=== PATIENT | male | born 1955 | race Caucasian/White ===

== ENCOUNTER 2018-12-23 20:43 | Emergency (ER) | payer MEDICARE, BC ==
[~2018-12-23] VITALS: Ht 182.9 cm; Wt 120.2 kg
[2018-12-23 22:27] VITALS: BP 130/78
== END 2018-12-23 22:28 | disposition home or self-care (01) ==
LOC: M.ERS 20:43
DX: L76.22 Postprocedural hemorrhage of skin and subcutaneous tissue following other procedure (principal); Z86.14 Personal history of Methicillin resistant Staphylococcus aureus infection; Z98.890 Other specified postprocedural states; Z90.49 Acquired absence of other specified parts of digestive tract

== ENCOUNTER 2019-01-07 21:17 | Emergency (ER) | payer MEDICARE, BC ==
[~2019-01-07] VITALS: Ht 182.9 cm; Wt 117.9 kg
[2019-01-07 21:55] LABS: ABSOLUTE BASOPHILS 0.1 thou/uL (0.0-0.2); ABSOLUTE LYMPHOCYTES 1.3 thou/uL (0.8-5.3); ABSOLUTE MONOCYTES 1.3 thou/uL (0.0-1.2); ABSOLUTE NEUTROPHILS 8.1 thou/uL (1.6-8.1); BASOPHILS 0.9 %; EOSINOPHILS 0.1 %; HEMATOCRIT 36.2 % (42.0-52.0); LYMPHOCYTES 11.7 %; MCH 27.6 pg (26.0-34.0); MCV 83.5 fL (80.0-100.0); MONOCYTES 12.4 %; MPV 7.8 fl. (7.2-11.1); NUCLEATED RBCS 0 /100WBC; PLATELET COUNT* 399 thou/uL (150-400); POLYS 74.9 %; RBC 4.34 mil/uL (4.50-6.00); RDW-CV 15.1 % (10.5-14.5); WBC 10.8 thou/uL (4.0-11.0)
[2019-01-07 22:03] LABS: CALCIUM 8.6 mg/dL (8.5-10.1); CREATININE 1.5 mg/dL (0.6-1.3); POTASSIUM 3.5 mmol/L (3.5-5.1)
[2019-01-07 22:08] LABS: ALBUMIN 3.6 g/dL (3.4-5.0); TOTAL BILIRUBIN 1.5 mg/dL (<0.1-1.0); TOTAL PROTEIN 8.1 g/dL (6.4-8.2)
[2019-01-08 01:35] VITALS: BP 180/80
[2019-01-08] MEDS ORDERED: MS CONTIN 30 MG30 MG PO (21:24)
[2019-01-08] MEDS ORDERED: LIORESAL 10 MG10 MG PO (21:24)
[2019-01-08] MEDS ORDERED: SORINE 80 MG TA80 M1 PO (21:25)
[2019-01-08] MEDS ORDERED: PRADAXA75 MG PO (21:25)
== END 2019-01-08 01:35 | disposition home or self-care (01) ==
LOC: M.ERS 21:17
PROVIDERS: Emergency Medicine
DX: S51.812A Laceration without foreign body of left forearm, initial encounter (principal); S61.411A Laceration without foreign body of right hand, initial encounter; S80.211A Abrasion, right knee, initial encounter; Z90.49 Acquired absence of other specified parts of digestive tract; Z86.14 Personal history of Methicillin resistant Staphylococcus aureus infection; Z89.431 Acquired absence of right foot; Z98.890 Other specified postprocedural states; Z88.5 Allergy status to narcotic agent; Z87.891 Personal history of nicotine dependence; W01.0XXA Fall on same level from slipping, tripping and stumbling without subsequent striking against object, initial encounter; Y93.89 Activity, other specified; Y92.002 Bathroom of unspecified non-institutional (private) residence as the place of occurrence of the external cause; Y99.8 Other external cause status